=== PATIENT | male | born 1985 | race African-American/Black ===

== ENCOUNTER 2018-03-22 19:48 | Inpatient (IN) | payer OTHER ==
[~2018-03-22] VITALS: Ht 188 cm; Wt 116.7 kg
[~2018-03-22 19:48] MED LIST: CATAPRES0.2 MG PO; CLONAZEPAM0.5 MG PO; CLONAZEPAM1 MG PO; DEPAKOTE250 MG PO; DEPAKOTE500 MG PO; DESYREL100 MG PO; DIVALPROEX SOD500 MG PO; KLONOPIN0.5 M1 PO; KLONOPIN1 MG PO; MOTRIN800 MG PO; RISPERDAL2 MG PO; RISPERDAL3 MG PO; XANAX2 MG PO
[2018-03-22] MEDS ORDERED: DEBROX15 ML BOTH EARS (21:35)
[2018-03-22] MEDS ORDERED: RISPERDAL2 MG PO (21:35)
[2018-03-22] MEDS ORDERED: TUMS500 MG PO (21:36)
[2018-03-22] MEDS ORDERED: MOBIC7.5 MG PO (21:36)
[2018-03-22] MEDS ORDERED: KLONOPIN2 MG PO (21:36)
[2018-03-22] MEDS ORDERED: COGENTIN1 MG PO (21:36)
[2018-03-22] MEDS ORDERED: CLARITIN10 MG PO (21:36)
[2018-03-22] MEDS ORDERED: SEROQUEL300 MG PO (21:37)
[2018-03-22] MEDS ORDERED: SILTUSSIN DM C473 ML PO (21:37)
[2018-03-22] MEDS ORDERED: DEPAKOTE500 MG PO ×2 (21:37)
[2018-03-22] MEDS ORDERED: VITAMIN E400 UNIT PO (21:38)
[2018-03-22] MEDS ORDERED: TYLENOL REGULA325 MG PO (21:38)
[2018-03-22 23:05] LABS: HEMATOCRIT 40.6 % (38.0-50.0); HEMOGLOBIN 14.3 G/DL (12.5-16.6); MCH 29.4 PG (29.0-34.0); MCHC 35.2 G/DL (30.0-36.0); MCV 83.5 FL (86-99); PLATELET COUNT 126 K/uL (156-360); RBC DIS.WIDTH-SD 42.6 % (39-53); RED BLOOD COUNT 4.86 M/uL (4.00-5.50); WHITE BLOOD COUNT 5.4 K/uL (4.1-10.2)
[2018-03-22 23:13] LABS: CHLORIDE 104 mEq/L (99-109); POTASSIUM 4.2 mEq/L (3.7-5.4); SODIUM 140 mEq/L (136-147)
[2018-03-22 23:15] LABS: GLUCOSE 106 mg/dL (70-99)
[2018-03-22 23:18] LABS: SERUM ETHYL ALCOHOL < 10 mg/dL
[2018-03-22 23:19] LABS: CREATININE 0.9 mg/dL (0.6-1.3); GFR ESTIMATE (CALCULATED) > 59 mL/min/ (58.99-99999)
[2018-03-22 23:21] LABS: UREA NITROGEN (BUN) 13 mg/dL (9-23)
[2018-03-22 23:22] LABS: SALICYLATE < 5.0 MG/DL (15-30)
[2018-03-22 23:23] LABS: ACETAMINOPHEN (TYLENOL) < 10 mcg/mL (10-30)
[2018-03-23 02:32] LABS: AMPHETAMINE NEGATIVE (500 ng/mL); BARBITURATES NEGATIVE (200 ng/mL); BENZODIAZEPINES NEGATIVE (150 ng/mL); BUPRENORPHINE NEGATIVE (10 ng/mL); COCAINE NEGATIVE (150 ng/mL); METHADONE NEGATIVE (200 ng/mL); METHAMPHETAMINE NEGATIVE (500 ng/mL); OPIATES (MORPHINE) NEGATIVE (100 ng/mL); OXYCODONE NEGATIVE (100 ng/mL); PHENCYCLIDINE NEGATIVE (25 ng/mL); PROPOXYPHENE NEGATIVE (300 ng/mL); THC CANNABINOIDS NEGATIVE (50 ng/mL); TRICYCLIC ANTIDEPRESSANTS PRESUMPTIVE POSITIVE (300 ng/mL)
[2018-03-23 03:35] VITALS: BP 137/84
[2018-03-23 07:56] VITALS: BP 141/64
[2018-03-23 16:43] VITALS: BP 127/75
[2018-03-24 08:13] VITALS: BP 156/65
[2018-03-24 16:08] VITALS: BP 128/68
[2018-03-25 08:00] VITALS: BP 116/61
== END 2018-03-25 14:53 | disposition home or self-care (01) | DRG 883 ==
LOC: EME 19:48 → 1WEST 21:22 → EDOF 21:22 → 1WEST 21:22 → ENRESERV 03-23 01:40 → 1WEST 03-23 02:31
PROVIDERS: Emergency Medicine
DX: F63.81 Intermittent explosive disorder (principal); R45.850 Homicidal ideations; F84.0 Autistic disorder; F71 Moderate intellectual disabilities
CPT/HCPCS: 80048; 80164; 85027; 90837; 97150 GO; 97165 GO; 99281; 99285; G0480